=== PATIENT | male | born 1990 | race Caucasian/White ===

== ENCOUNTER 2016-10-26 17:30 | Emergency (ER) | payer OTHER ==
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
[2016-10-26] MEDS ORDERED: ACETAMINOPHEN WITH CODEINE #3 TABLET PO ONE (19:28)
[2016-10-26] MEDS ORDERED: IBUPROFEN 600 MG TABLET PO ONE (19:28)
[2016-10-26 20:02] VITALS: BP 135/84
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
== END 2016-10-26 20:08 | disposition home or self-care (01) ==
LOC: ER 17:30
DX: M54.5 Low back pain (principal); V49.50XA Passenger injured in collision with unspecified motor vehicles in traffic accident, initial encounter; F17.200 Nicotine dependence, unspecified, uncomplicated
CPT/HCPCS: 72110; 99283